=== PATIENT | male | born 1945 | race Caucasian/White ===

== ENCOUNTER 2018-02-21 15:08 | Inpatient (IN) | payer OTHER, MEDICARE ==
[~2018-02-21] VITALS: Ht 175.3 cm; Wt 98.0 kg
[2018-02-21] MEDS ORDERED: SODIUM CHLORIDE FLUSH 10ML SYR IVF ONE (15:30)
[2018-02-21 15:48] LABS: BASOPHILS # (AUTO) 0.03 x10^3/uL (0-0.1); BASOPHILS % (AUTO) 0 % (0-1); EOSINOPHILS # (AUTO) 0.06 x10^3/uL (0-0.4); EOSINOPHILS % (AUTO) 1 % (1-7); LYMPHOCYTES # (AUTO) 1.08 x10^3/uL (1-3.4); LYMPHOCYTES % (AUTO) 14 % (22-44); MD NO; MEAN CORPUSCULAR HEMOGLOBIN 30.4 pg (27.5-34.5); MEAN CORPUSCULAR HGB CONC 32.9 g/dL (33.2-36.2); MEAN CORPUSCULAR VOLUME 92.2 fL (81-97); MEAN PLATELET VOLUME 9.6 fL (7.4-10.4); MONOCYTES # (AUTO) 0.49 x10^3/uL (0.2-0.8); MONOCYTES % (AUTO) 6 % (2-9); NEUTROPHILS # (AUTO) 6.06 x10^3/uL (1.8-6.8); NEUTROPHILS % (AUTO) 79 % (42-75); PLATELET COUNT 186 x10^3/uL (130-400); RED BLOOD COUNT 5.62 x10^6/uL (4.38-5.82); RED CELL DISTRIBUTION WIDTH 21.3 % (9.4-14.8)
[2018-02-21 15:57] LABS: ALANINE AMINOTRANSFERASE 50 U/L (12-78); ALBUMIN 3.7 g/dL (3.4-5.0); ANION GAP 12 mmol/L (5-15); CALCIUM 8.7 mg/dL (8.5-10.1); CHLORIDE 103 mmol/L (98-107); CREATININE 2.17 mg/dL (0.7-1.3)
[2018-02-21 15:59] LABS: ALKALINE PHOSPHATASE 109 U/L (45-117); BILIRUBIN,TOTAL 0.6 mg/dL (0.2-1.0); TOTAL PROTEIN 7.5 g/dL (6.4-8.2)
[2018-02-21 16:07] LABS: INTERNATIONAL NORMALIZED RATIO 1.12 (0.93-1.1); PROTHROMBIN TIME 11.5 Seconds (9.6-11.5)
[2018-02-21 18:40] LABS: MICROSCOPIC INDICATED
[2018-02-21 18:54] LABS: CULTURE INDICATED? YES
[2018-02-21] MEDS ORDERED: SIMV40TA3 PO (19:10)
[2018-02-21] MEDS ORDERED: FINA5TAB4 PO (19:10)
[2018-02-21] MEDS ORDERED: TIZA4CAP PO (19:11)
[2018-02-21] MEDS ORDERED: EMPA1TAB17 PO (19:12)
[2018-02-21] MEDS ORDERED: ALLO300T PO (19:12)
[2018-02-21] MEDS ORDERED: OMEP20TA62 PO (19:13)
[2018-02-21] MEDS ORDERED: DULO30CA2 PO (19:13)
[2018-02-21] MEDS ORDERED: OLME1TAB25 PO (19:14)
[2018-02-21] MEDS ORDERED: BISACODYL 10 MG SUPP PR PRN (20:00)
[2018-02-21] MEDS ORDERED: ONDANSETRON ODT 4 MG PO PRN (20:00)
[2018-02-21] MEDS ORDERED: ONDANSETRON 2MG/ML, 2ML IVPush PRN (20:00)
[2018-02-21] MEDS ORDERED: hydrALAzine 20 MG/ML, 1ML IVPush PRN (20:00)
[2018-02-21] MEDS ORDERED: LABETALOL 5MG/ML, 20ML IVPush PRN (20:00)
[2018-02-21] MEDS ORDERED: OXYcodone IR 5MG TABLET PO PRN (20:00)
[2018-02-21] MEDS ORDERED: DOCUSATE 100 MG CAPSULE PO PRN (20:00)
[2018-02-21] MEDS ORDERED: morphine SULFATE 10 MG/ML, 1ML IVPush PRN (20:00)
[2018-02-21] MEDS ORDERED: PROMETHAZINE 25 MG/ML, 1ML IM PRN (20:00)
[2018-02-21] MEDS ORDERED: POLYETHYLENE GLYCOL 17 GM PACKET PO PRN (20:00)
[2018-02-21 20:24] LABS: FREE T4 (FREE THYROXINE) 1.19 ng/dL (0.76-1.46); THYROID STIMULATING HORMONE 2.32 mIU/L (0.358-3.740)
[2018-02-21 20:42] LABS: HEMOGLOBIN A1C 7.2 % (4.2-6.3)
[2018-02-21] MEDS ORDERED: TIZANIDINE 4MG TABLET ONE (20:50)
[2018-02-21] MEDS ORDERED: SIMVASTATIN 40 MG TABLET ONE (20:52)
[2018-02-21] MEDS ORDERED: GABAPENTIN 100 MG CAPSULE ONE (20:52)
[2018-02-21] MEDS: GABAPENTIN 300 MG CAPSULE PO SCH (21:00)
[2018-02-21] MEDS: SIMVASTATIN 40 MG TABLET PO SCH (21:52)
[2018-02-21] MEDS: HEPARIN 5,000 UNITS/ML, 1ML SQ SCH (21:52)
[2018-02-21] MEDS: TIZANIDINE 4MG TABLET PO SCH (21:53)
[2018-02-21] MEDS: SODIUM CHLORIDE 0.9% 1,000 ML IV SCH (21:54)
[2018-02-21 22:01] VITALS: BP 155/77
[2018-02-21] MEDS: ACETAMINOPHEN 325 MG TABLET PO PRN (22:34)
[2018-02-22 00:24] LABS: TROPONIN I 0.042 ng/mL (0.000-0.045)
[2018-02-22 02:00] VITALS: BP 119/72
[2018-02-22] MEDS: HEPARIN 5,000 UNITS/ML, 1ML SQ SCH ×3 (04:21→20:36)
[2018-02-22 05:42] LABS: BASOPHILS # (AUTO) 0.03 x10^3/uL (0-0.1); BASOPHILS % (AUTO) 0 % (0-1); EOSINOPHILS # (AUTO) 0.19 x10^3/uL (0-0.4); EOSINOPHILS % (AUTO) 3 % (1-7); LYMPHOCYTES # (AUTO) 1.85 x10^3/uL (1-3.4); LYMPHOCYTES % (AUTO) 26 % (22-44); MD NO; MEAN CORPUSCULAR HEMOGLOBIN 30.2 pg (27.5-34.5); MEAN CORPUSCULAR HGB CONC 32.8 g/dL (33.2-36.2); MEAN CORPUSCULAR VOLUME 92.1 fL (81-97); MEAN PLATELET VOLUME 9.5 fL (7.4-10.4); MONOCYTES # (AUTO) 0.68 x10^3/uL (0.2-0.8); MONOCYTES % (AUTO) 9 % (2-9); NEUTROPHILS # (AUTO) 4.46 x10^3/uL (1.8-6.8); NEUTROPHILS % (AUTO) 62 % (42-75); PLATELET COUNT 181 x10^3/uL (130-400); RED CELL DISTRIBUTION WIDTH 20.5 % (9.4-14.8)
[2018-02-22 05:44] LABS: ALANINE AMINOTRANSFERASE 42 U/L (12-78); ALBUMIN 3.3 g/dL (3.4-5.0); ANION GAP 10 mmol/L (5-15); CALCIUM 8.2 mg/dL (8.5-10.1); CHLORIDE 105 mmol/L (98-107); CHOLESTEROL, TOTAL 114 mg/dL (140-239); CREATININE 2.16 mg/dL (0.7-1.3)
[2018-02-22 05:47] LABS: ALKALINE PHOSPHATASE 99 U/L (45-117); BILIRUBIN,TOTAL 0.5 mg/dL (0.2-1.0); CHOL/HDL RATIO 3.1; HDL CHOL % 32 % (26-37); HDL CHOLESTEROL (DIRECT) 37 mg/dL (40-60); LDL CHOLESTEROL,CALCULATED 22 mg/dL (54-169); LDL/HDL RATIO 0.6 (0.5-3.0); TOTAL PROTEIN 6.7 g/dL (6.4-8.2); TRIGLYCERIDES 277 mg/dL (50-200); VLDL CHOLESTEROL 55 mg/dL (0-25)
[2018-02-22] MEDS: SODIUM CHLORIDE 0.9% 1,000 ML IV SCH (07:30)
[2018-02-22 07:41] VITALS: BP 113/72
[2018-02-22] MEDS ORDERED: GABAPENTIN 100 MG CAPSULE ONE ×2 (08:51→16:16)
[2018-02-22] MEDS: GABAPENTIN 300 MG CAPSULE PO SCH ×2 (09:00→16:00)
[2018-02-22] MEDS: ALLOPURINOL 300 MG TABLET PO SCH (09:29)
[2018-02-22] MEDS: HYDROCHLOROTHIAZIDE 12.5 MG CAPSULE PO SCH (09:30)
[2018-02-22] MEDS: DULOXETINE 30 MG CAPSULE.DR PO SCH (09:30)
[2018-02-22] MEDS: LOSARTAN 50MG TABLET PO SCH (09:31)
[2018-02-22] MEDS: OMEPRAZOLE 20 MG CAPSULE.DR PO SCH (09:31)
[2018-02-22] MEDS: FINASTERIDE 5 MG TABLET PO SCH (09:31)
[2018-02-22] MEDS ORDERED: MAGNESIUM SULFATE PMX 2GM/50ML 50 ML IV ONE (10:00)
[2018-02-22] MEDS: ACETAMINOPHEN 325 MG TABLET PO PRN (11:54)
[2018-02-22 14:18] VITALS: BP 169/74
[2018-02-22] MEDS: DEXAMETHASONE 10 MG in SODIUM CHLORIDE 0.9% 50 ML IV SCH ×2 (14:36→20:36)
[2018-02-22] MEDS: ASPIRIN 81 MG TABLET EC PO SCH (14:36)
[2018-02-22] MEDS: INSULIN LISPRO 100 UNITS/ML, PEN SQ-INSULIN SCH ×2 (18:02→20:37)
[2018-02-22 19:09] VITALS: BP 147/78
[2018-02-22] MEDS: TIZANIDINE 4MG TABLET PO SCH (20:36)
[2018-02-22] MEDS: GABAPENTIN 100 MG CAPSULE PO SCH (20:36)
[2018-02-22] MEDS: SIMVASTATIN 40 MG TABLET PO SCH (20:37)
[2018-02-23 00:54] VITALS: BP 118/68
[2018-02-23] MEDS: DEXAMETHASONE 10 MG in SODIUM CHLORIDE 0.9% 50 ML IV SCH ×3 (02:16→15:13)
[2018-02-23] MEDS: HEPARIN 5,000 UNITS/ML, 1ML SQ SCH ×2 (04:22→11:37)
[2018-02-23 05:22] LABS: ANION GAP 10 mmol/L (5-15); CALCIUM 8.4 mg/dL (8.5-10.1); CHLORIDE 105 mmol/L (98-107); CREATININE 1.88 mg/dL (0.7-1.3)
[2018-02-23] MEDS: ASPIRIN 81 MG TABLET EC PO SCH (06:04)
[2018-02-23 07:35] VITALS: BP 162/91
[2018-02-23] MEDS: INSULIN LISPRO 100 UNITS/ML, PEN SQ-INSULIN SCH ×2 (07:49→11:37)
[2018-02-23] MEDS: LOSARTAN 50MG TABLET PO SCH (07:50)
[2018-02-23] MEDS: ALLOPURINOL 300 MG TABLET PO SCH (07:51)
[2018-02-23] MEDS: HYDROCHLOROTHIAZIDE 12.5 MG CAPSULE PO SCH (07:51)
[2018-02-23] MEDS: DULOXETINE 30 MG CAPSULE.DR PO SCH (07:51)
[2018-02-23] MEDS: OMEPRAZOLE 20 MG CAPSULE.DR PO SCH (07:51)
[2018-02-23] MEDS: GABAPENTIN 100 MG CAPSULE PO SCH (07:52)
[2018-02-23] MEDS: FINASTERIDE 5 MG TABLET PO SCH (07:52)
[2018-02-23] MEDS ORDERED: TIZANIDINE 4MG TABLET PO SCH (09:00)
[2018-02-23] MEDS: ACETAMINOPHEN 325 MG TABLET PO PRN (09:02)
[2018-02-23] MEDS ORDERED: DOCU-131 PO (14:07)
[2018-02-23] MEDS ORDERED: METH4TAB2 PO (14:07)
[2018-02-23] MEDS ORDERED: GABA-826 PO (14:07)
[2018-02-23] MEDS ORDERED: ASPI-621 PO (14:07)
[2018-02-23 14:13] VITALS: BP 127/53
[2018-02-23] MEDS ORDERED: INSULIN LISPRO 100 UNITS/ML, PEN SQ-INSULIN SCH (16:00)
[2018-02-23] MEDS ORDERED: FINASTERIDE 5 MG TABLET PO SCH (21:00)
== END 2018-02-23 16:03 | disposition home or self-care (01) | DRG 552 ==
LOC: ED 18:54 → EDIP 18:55 → 4WST 20:47 → DCLOUNGE 02-23 16:00
PROVIDERS: ADMIT Internal Medicine; ATTEND Internal Medicine
DX: M48.02 Spinal stenosis, cervical region (principal); R91.1 Solitary pulmonary nodule; E11.22 Type 2 diabetes mellitus with diabetic chronic kidney disease; M54.12 Radiculopathy, cervical region; M47.27 Other spondylosis with radiculopathy, lumbosacral region; K76.0 Fatty (change of) liver, not elsewhere classified; E78.5 Hyperlipidemia, unspecified; N40.0 Benign prostatic hyperplasia without lower urinary tract symptoms; R55 Syncope and collapse; M1A.9XX0 Chronic gout, unspecified, without tophus (tophi); K21.9 Gastro-esophageal reflux disease without esophagitis; G47.33 Obstructive sleep apnea (adult) (pediatric); Z79.82 Long term (current) use of aspirin; Z87.891 Personal history of nicotine dependence; V49.9XXA Car occupant (driver) (passenger) injured in unspecified traffic accident, initial encounter; Y93.89 Activity, other specified; Y92.89 Other specified places as the place of occurrence of the external cause; Y99.8 Other external cause status
CPT/HCPCS: 36415; 70450; 70551; 71046; 71250; 72110; 72125; 72141; 80048; 80053; 80061; 81001; 82962; 83036; 83690; 83735; 84439; 84443; 84484; 85025; 85610; 85730; 87086; 93005; 93306; 93880; 99285; J1100; J1644; J1815; J3475; J7030

== ENCOUNTER → 2018-03-09 | Outpatient (CLI) | payer MEDICARE ==
[~2018-03-09] MED LIST: ALLO300T PO; ASPI-621 PO; CYAN10002 IM; DOCU-131 PO; DULO30CA2 PO; EMPA1TAB17 PO; EMPA1TAB19 PO; FINA5TAB4 PO; GABA-826 PO; GABA100C PO; METH4TAB2 PO; OLME1TAB25 PO; OMEP20TA62 PO; SIMV40TA3 PO; TEST200V3 IM; TIZA4CAP PO
== END | disposition home or self-care (01) ==
LOC: RAD 08:43
PROVIDERS: ATTEND Internal Medicine
DX: R91.8 Other nonspecific abnormal finding of lung field (principal); I70.0 Atherosclerosis of aorta; E11.9 Type 2 diabetes mellitus without complications; Z87.891 Personal history of nicotine dependence
CPT/HCPCS: 71250

== ENCOUNTER 2018-03-10 07:57 | Day surgery (SDC) | payer MEDICARE ==
[~2018-03-10] VITALS: Ht 175.3 cm; Wt 95.0 kg
[2018-03-10] MEDS ORDERED: LACTATED RINGERS 1,000 ML IV SCH (08:21)
[2018-03-10 08:26] VITALS: BP 161/84
[2018-03-10] MEDS ORDERED: FENTANYL PF 100 MCG/2ML ONE ×2 (09:30→09:56)
[2018-03-10] MEDS ORDERED: DEXAMETHASONE 4 MG/ML, 1ML ONE ×2 (09:51→10:47)
[2018-03-10] MEDS ORDERED: MORPHINE SULFATE 4 MG/ML, 1ML IVPush PRN (10:00)
[2018-03-10] MEDS ORDERED: hydrALAzine 20 MG/ML, 1ML IV PRN (10:00)
[2018-03-10] MEDS ORDERED: LABETALOL 5MG/ML, 20ML IV PRN (10:00)
[2018-03-10] MEDS ORDERED: OXYcodone 5 MG/5 ML ORAL.SOL UDC PO PRN (10:00)
[2018-03-10] MEDS ORDERED: PROMETHAZINE 25 MG/ML, 1ML IV PRN (10:00)
[2018-03-10] MEDS ORDERED: ONDANSETRON 2MG/ML, 2ML IV PRN (10:00)
[2018-03-10] MEDS ORDERED: ACETAMINOPHEN 325 MG TABLET PO PRN (10:00)
[2018-03-10] MEDS ORDERED: PROPOFOL 10 MG/ML, 20ML ONE (10:47)
[2018-03-10] MEDS ORDERED: ROCURONIUM 10MG/ML,5ML ONE (10:47)
[2018-03-10] MEDS ORDERED: SUCCINYLCHOLINE 20 MG/ML, 10ML ONE (10:47)
[2018-03-10] MEDS ORDERED: ONDANSETRON 2MG/ML, 2ML ONE (10:47)
== END 2018-03-10 16:15 | disposition home or self-care (01) ==
LOC: SDC 07:57 → OUT 16:15
PROVIDERS: ATTEND Internal Medicine
DX: J98.4 Other disorders of lung (principal); K21.9 Gastro-esophageal reflux disease without esophagitis; M54.9 Dorsalgia, unspecified; G47.33 Obstructive sleep apnea (adult) (pediatric); Z87.891 Personal history of nicotine dependence; Z79.899 Other long term (current) drug therapy
CPT/HCPCS: 31624; 31627; 31628; 31629; 71045; 76000; 82962; 88112; 88172; 88173; 88177; 88305; 93005; J0330; J1100; J2405; J2704; J3010; J7120

== ENCOUNTER → 2018-06-28 | Outpatient (CLI) | payer MEDICARE ==
[~2018-06-28] MED LIST changes: -ASPI-621 PO; +ASPI81TA45 PO
== END | disposition home or self-care (01) ==
LOC: CFH 13:20
PROVIDERS: ATTEND Internal Medicine
DX: R91.1 Solitary pulmonary nodule (principal)
CPT/HCPCS: 71250

== ENCOUNTER → 2018-11-28 | Outpatient (CLI) | payer MEDICARE | END | disposition home or self-care (01) | LOC: PETCFH 13:12 | PROVIDERS: ATTEND Internal Medicine | DX: R91.1 Solitary pulmonary nodule (principal); I70.0 Atherosclerosis of aorta; K57.30 Diverticulosis of large intestine without perforation or abscess without bleeding | CPT/HCPCS: 78815; A9552 ==

== ENCOUNTER 2019-02-20 13:13 | Outpatient (CLI) | payer MEDICARE ==
[2019-02-20] MEDS ORDERED: GLIP5TAB10 PO (14:02)
[2019-02-20] MEDS ORDERED: OMEP40CA6 PO (14:02)
[2019-02-20] MEDS ORDERED: magnesium PO (14:02)
[2019-02-20] MEDS ORDERED: ACET-1600 PO (14:02)
[2019-02-20] MEDS ORDERED: METF500T17 PO (14:02)
[2019-02-20] MEDS ORDERED: CHOL10003 PO (14:02)
[2019-02-20] MEDS ORDERED: METO50TA82 PO (14:02)
[2019-02-20] MEDS ORDERED: DULO60CA7 PO (14:02)
[2019-02-20] MEDS ORDERED: DULA1.5P SC (14:16)
[2019-02-20] MEDS ORDERED: potassium PO (14:16)
[2019-02-20 14:46] LABS: BASOPHILS # (AUTO) 0.02 x10^3/uL (0-0.1); BASOPHILS % (AUTO) 1 % (0-1); EOSINOPHILS # (AUTO) 0.26 x10^3/uL (0-0.4); EOSINOPHILS % (AUTO) 5 % (1-7); LYMPHOCYTES # (AUTO) 1.63 x10^3/uL (1-3.4); LYMPHOCYTES % (AUTO) 31 % (22-44); MD NO; MEAN CORPUSCULAR HEMOGLOBIN 33.4 pg (27.5-34.5); MEAN CORPUSCULAR HGB CONC 33.9 g/dL (33.2-36.2); MEAN CORPUSCULAR VOLUME 98.6 fL (81-97); MEAN PLATELET VOLUME 9.9 fL (7.4-10.4); MONOCYTES # (AUTO) 0.36 x10^3/uL (0.2-0.8); MONOCYTES % (AUTO) 7 % (2-9); NEUTROPHILS # (AUTO) 2.96 x10^3/uL (1.8-6.8); NEUTROPHILS % (AUTO) 56 % (42-75); PLATELET COUNT 185 x10^3/uL (130-400); RED BLOOD COUNT 4.79 x10^6/uL (4.38-5.82); RED CELL DISTRIBUTION WIDTH 13.7 % (9.4-14.8)
[2019-02-20 14:59] LABS: ALBUMIN 3.7 g/dL (3.4-5.0); ANION GAP 9 mmol/L (5-15); CHLORIDE 105 mmol/L (98-107)
[2019-02-20 15:03] LABS: ALANINE AMINOTRANSFERASE 109 U/L (12-78); ALKALINE PHOSPHATASE 138 U/L (45-117); BILIRUBIN,TOTAL 0.5 mg/dL (0.2-1.0); TOTAL PROTEIN 7.9 g/dL (6.4-8.2)
[2019-03-04] MEDS ORDERED: HYDR-3237 PO (10:20)
== END 2019-02-20 23:59 | disposition home or self-care (01) ==
LOC: STAR 13:13
PROVIDERS: ATTEND Thoracic Surgery (Cardiothoracic Vascular Surgery)
DX: Z01.818 Encounter for other preprocedural examination (principal); I44.4 Left anterior fascicular block; R94.31 Abnormal electrocardiogram [ECG] [EKG]
CPT/HCPCS: 36415; 80053; 85025; 93005